=== PATIENT | female | born 1955 | race Two or more races ===

== ENCOUNTER 2024-05-04 16:24 | Emergency (ER) | payer OTHER ==
[~2024-05-04] VITALS: Ht 160 cm; Wt 72.5 kg
[2024-05-04 16:32] VITALS: BP 160/103; PULSE 77; RESP 20; O2SAT 96
--- NOTE | 2024-05-04 16:43 | ED.PDOC ---
HPI Comments HPI: Poor Historian. 69-year-old female presents to the ED for evaluation of lightheadedness episodes once a week proximally. Denies any loss of consciousness any head injury. Denies any acute focal pain in her body except minimal left wrist pain. Patient has history of hypertension hypotension episodes and gets dizziness spells at least once a week and has been worked up for this in the past she states. While patient was visiting a family member here in the ED and she was in the restroom, patient experienced her symptoms again of lightheadedness but denies any loss of consciousness. Denies any head injury. Patient fell on her right wrist and has minimal pain in that area. Past medical history includes hypertension hypotension under treatment. Breast cancer, mastectomy. Hyperlipidemia. Past Medcial History: Past Surgical History: REVIEW OF SYSTEMS: CONSTITUTIONAL: Denies acute: fever, diaphoresis, chills, generalized weakness. HEAD: Denies acute: headache, photophobia Eyes: Denies acute: Double vision, vision loss, eye pain, eye discharge. EARS: Denies acute: tinnitus, hearing loss, ear discharge, ear pain, THROAT: Denies acute: sore throat, swelling, difficulty swallowing , pain with swallowing, change in voice. NECK: Denies acute: neck pain, neck swelling, stiff neck. HEART: Denies acute : chest pain, palpitations, LUNGS: Denies acute: SOB, wheezing, cough, hemoptysis ABDOMEN: Denies acute: abdominal pain, Nausea, Vomiting, diarrhea, melena , hematemesis, hematochezia SKIN: Denies acute: rash, redness, lesions, itchiness. EXTREMITIES: Denies acute: calf pain, numbness, tingling, weakness, Denies acute: Low back pain. Neuro: Denies acute: focal neurological deficit, motor or sensory focal neurological deficit, tremors, seizure like activity, confusion, change in mental status, loss of bowel or bladder function, cauda equina like symptoms. : Denies acute: dysuria, hematuria, flank pain, increase in urinary frequency. PSYCH: Denies acute: hallucination, suicidal ideation, homicidal ideation. FEMALE: Denies acute: abnormal vaginal bleeding, foul odor, unusual discharge. PHYSICAL EXAM: General: no acute distress, awake and alert. Head: normocephalic, atraumatic. Neck: supple, trachea is midline, no swelling. Throat: Normal phonation. Eyes:, no erythema, no purulent discharge, no proptosis, no icterus. Heart: regular rate, regular rhythm, no significant murmur appreciated. Lungs: no apparent respiratory distress, Able to speak in full sentences. No wheezing, no rhonchi, no crackles. No stridors Clear to auscultation bilaterally. Abdomen: non tender to palpation, non distended, soft, no guarding, no rebound, + bowel sounds. Neuro: Awake, Alert, oriented to name, self, situation, follows commands GCS=15. Speech is normal. Skin: no petechia, no purpura, no cyanosis, non-pale, not jaundice. Lower extremities: --no - Pitting edema no deformity, no focal swelling, no calf TTP. Evaluation of the wrist. Patient is neurovascularly intact in the affected extremity. Radial pulses palpable. Sensation and motor are present. No appa rent deformity or swelling or erythema. Normal range of motion. Makes eye contact. moves all four extremities. Face: no apparent facial droop. Ambulating in the ED independently. Stroke: finger to nose cerebellar testing is intact. No pronator drift. Symmetrical director systems muscle strength b/l PERRLA, EOM-I CN 2-12 are grossly intact, No nystagmus. No nuchal rigidity, Kernig's sign, Brudzinski's sign, no meningeal signs. Chief Complaint: Syncope Time Seen by MD: 16:32 Reviewed Notes: Nurses Notes, Allergies Information Source: Patient Mode of Arrival: Ambulatory Was a procedure done? Was a procedure done?: No CP Differential Dx Differential Diagnosis: Other (Includes but not limited to thyroid disease, encephalopathy, electrolyte abnormality, sepsis, infection, intracranial pathology, drug adverse effects, arrhythmia, kidney insufficiency, ACS, CVA, malignancy, anemia), N/A Differential Diagnosis: N/A Differential Diagnosis: Other X-Ray, Labs, Meds, VS Vital Signs Date Time Temp Pulse Resp B/P (MAP) Pulse Ox O2 Delivery O2 Flow Rate FiO2 05/04/24 16:32 97.3 77 20 160/103 (122) 96 Time of 1ST Reevaluation: 00:00 Reevaluation 1ST: N/A Patient Education/Counseling: Diagnosis, Treatment, Other Family Education/Counseling: Other Comments Patient presented with the above HPI.--wrist pain/near syncope----workup was initiated. patient was found with the above mentioned diagnosis. the following medications were ordered: please refer to order lists of meds and tests obtained by myself Dr. Crump. Patient ED course and VS have been stabilized. Patient has been reassessed in the ED and remained in a stable condition. Patient has been observed in the ED adequate length of time to insure improvement/stability. Escalation of care considered: Consideration of escalation to observation or admission pt was placed for admission for further evaluation and treatment but pt left AMA. All the reports of any imaging studies that were ordered by myself were reviewed by myself. Departure 1 Departure Time of Disposition: 16:42 Impression: Primary Impression: Near syncope Additional Impressions: Fall Left wrist sprain Left against medical advice Disposition: 07 LEFT AGAINST MEDICAL ADVICE Condition: Guarded Additional Instructions: pt left AMA Discharged With: Self Critical Care Note Critical Care Time?: No Heart Score Heart Score: Heart Score Response (Comments) Value History N/A 0 EKG N/A 0 Age N/A 0 Risk Factors N/A 0 Troponin N/A 0 Total 0 VIN CRUMP DO May 04, 2024 16:43
== END 2024-05-04 18:35 | disposition left against medical advice (07) ==
LOC: ER 16:24
DX: S63.502A Unspecified sprain of left wrist, initial encounter (principal); R55 Syncope and collapse; I10 Essential (primary) hypertension; E78.5 Hyperlipidemia, unspecified; X58.XXXA Exposure to other specified factors, initial encounter; Y93.89 Activity, other specified; Y92.89 Other specified places as the place of occurrence of the external cause; Y99.8 Other external cause status